=== PATIENT | female | born 1980 | race Caucasian/White ===

== ENCOUNTER 2024-01-14 08:06 | Emergency (ER) | payer OTHER, SELFPAY ==
[2024-01-14 08:10] VITALS: BP 146/84
[2024-01-14 08:32] VITALS: BMI 38.4
[2024-01-14 09:05] LABS: Hematocrit 36.5 % (37.0-47.0); Hemoglobin 12.4 g/dL (12.0-16.0); Mean Corpuscular Hgb 28.5 pg (27.0-31.0); Mean Corpuscular Volume 83.9 fL (81.0-99.0); Mean Platelet Volume 8.9 fL (7.4-10.4); Platelet Count 450 10^3/uL (130-400); Red Blood Cell Count 4.35 10^6/uL (4.20-5.40); Red Cell Dist. Width 15.2 % (11.5-14.5); White Blood Cell Count 9.4 10^3/uL (4.8-10.8)
--- NOTE | 2024-01-14 09:08 | PTCARENOTE ---
pt arrived to the ED through triage, pt is currently in ED-12 with active 1:1. Labs were collected, pt is in paper scrubs with her belongings packed up and outside of pt's room. Pt communicated to me that her was given 'one year' to live
due to him being diagnosed with leukemia, pt states they 'feels like every thing is on them, so things don't fall apart', and pt also stated 'there is no hope' due to pt's fear of not being able to financially, physically, and mentally support their
children once spouse has passed. Pt also confided in me that they have been arguing with their spouse more frequently and his mannerisms has changed.
[2024-01-14 09:09] LABS: Amphetamines Negative (Negative)
[2024-01-14 09:10] LABS: Barbiturates Negative (Negative); Benzodiazepines Positive (Negative); Buprenorphine Negative (Negative); Cocaine Negative (Negative); Marijuana Negative (Negative); Methadone Negative (Negative); Methamphetamines Negative (Negative); Opiates Negative (Negative); Phencyclidine Negative (Negative); Tricyclic Antidepressants Negative (Negative)
[2024-01-14 09:21] LABS: HCG, Serum Qualitative Screen Negative
[2024-01-14 09:22] LABS: ALT (SGPT) 40 U/L (0-35); AST (SGOT) 31 U/L (14-36); Acetaminophen < 10 ug/ml (10-30); Albumin 4.3 g/dl (3.5-5.0); Alcohol 30 mg/dl; Alkaline Phosphatase 78 U/L (38-126); Blood Urea Nitrogen 13 mg/dl (7-17); Calcium 9.3 mg/dl (8.4-10.2); Carbon Dioxide 25 mmol/L (22-30); Chloride 108 mmol/L (98-107); Estimated Creatinine Clearance 97 ml/min; Glucose 113 mg/dl (70-99); Potassium 4.3 mmol/L (3.5-5.1); Salicylate < 1.0 mg/dl (2.0-20.0); Sodium 138 mmol/L (135-145); Total Bilirubin 0.2 mg/dl (0.2-1.3); Total Protein 7.3 g/dl (6.3-8.2); eGFR > 60.00
--- NOTE | 2024-01-14 09:43 | ED.GENMED ---
History of Present Illness
General
Chief Complaint: Suicidal Ideation
Source: patient
Exam Limitations: none
Time Seen by Provider: 01/14/24 08:21
Nursing documentation reviewed up to this point in time: agreed with
Travel History
Have you had any contact with someone who has COVID-19?: No
Do you have any symptoms of coronavirus? Fever > 100 degrees, chills, cough, shortness of breath, sore throat, loss of taste or smell, muscle aches, or headache?: No
History of Present Illness
History of Present Illness:
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 Patient
denies use of any other illicit medication. Denies headache. Denies dizziness. Denies fever. Denies chest pain or shortness of breath. Denies abdominal pain. Denies nausea or vomiting. Denies previous history of similar attempt.
Past History
Past History
ED Past Medical History: Other (gout)
Social History
Living: with family
Review of Systems
Review of Systems
Allergies reviewed?: Yes
All Other Systems: ROS reviewed and negative except as documented in HPI and ROS
Constitutional: Reports no symptoms
EENT: Reports no symptoms
Respiratory: Reports no symptoms
Cardiac: Reports no symptoms
ABD/GI: Reports no symptoms
Musculoskeletal: Reports no symptoms
Skin: Reports no symptoms
Neurological: Reports no symptoms; Denies dizzy or headache
Psychiatric: Reports depression and suicidal
Phy Exam
Physical Exam
Physical Exam:
Physical Exam
General: mild distress, not acutely ill. afebrile
Head: nc/at. eomi
Neck: supple. no meningeal signs.
Heart: s1/s2 regular rate and rhythm, no murmur. equal radial pulses.
Lungs: no acute respiratory distress. clear bilaterally
Abdomen: normal bowel sounds. not tender.
Neuro: alert and oriented. no focal neurological deficits. normal speech.
Skin: no rash
Psychiatric: well kept. interactive and cooperative
Extremities: no edema. no calf tenderness.
Course
Orders/Labs/Results
Orders:
Orders
01/14/24 08:34
Test Result ONCE
01/14/24 08:41
Acetaminophen Urgent
Alcohol Urgent
Complete Blood Count/No Diff Urgent
Comprehensive Metabolic Panel Urgent
Fentanyl, Urine Urgent
HCG, Serum Qualitative Screen Urgent
Salicylate Urgent
Urine Drug Abuse Screen Urgent
Date Specimen was Collected: 01/14/24
Time Specimen was Collected: 08:34
01/14/24 08:48
1:1 Observation - Suicide/ Violent Behavior As Directed
Abnormal Lab Results
01/14/24
08:41
Hct 36.5 L %
(37.0-47.0)
RDW 15.2 H %
(11.5-14.5)
Plt Count 450 H 10^3/uL
(130-400)
Chloride 108 H mmol/L
(98-107)
Glucose 113 H mg/dl
(70-99)
ALT 40 H U/L
(0-35)
Salicylates < 1.0 L mg/dl
(2.0-20.0)
Acetaminophen < 10 L ug/ml
(10-30)
U Benzodiazepines Scrn Positive H
(Negative)
01/14/24 08:41
01/14/24 08:41
Vital Signs
Initial and Last Documented VS:
Initial Vital Signs
Temp Pulse Resp BP Pulse Ox
98.3 F 80 18 146/84 99
01/14/24 08:10 01/14/24 08:10 01/14/24 08:10 01/14/24 08:10 01/14/24 08:10
Last Documented Vital Signs
Temp Pulse Resp BP Pulse Ox
98.3 F 80 18 146/84 99
01/14/24 08:10 01/14/24 08:10 01/14/24 08:10 01/14/24 08:10 01/14/24 08:10
MDM/Problems Addressed
MDM/Problems Addressed:
Patient medically cleared. Patient will be discharged back to [facility] for further evaluation, including potential inpatient psychiatric evaluation and treatment.
*Critical Care Note
Total Time (30-74mins, 75-104mins- exclusive of procedures): Not Applicable
ED Attending Note
-
Portions of this chart may have been created with voice recognition software.� Occasional wrong word or��sound alike� substitutions may have occurred due to the inherent limitations of voice recognition software.
Discharge Plan
Departure
Patient Disposition: [facility]
Date of Disposition: 01/14/24
Time of Disposition: 09:44
Discharge Problem:
Suicidal ideation
Prescriptions:
No Action
fluoxetine 40 MG capsule
80 mg PO HS
alprazolam 0.5 MG tablet
0.5 mg PO Q6HPRN PRN (Reason: anxiety)
Eliquis 5 MG tablet
5 mg PO DAILY
Rx Instructions:
continue until instructed to stop by Dr. Rich
Referrals:
UNKNOWN,NO INTERVIEW [Family Provider] -
Interventions
Interventions:
*Risk Screen - Suicide Last Done: 01/14/24 08:47
*Neglect/Abuse Screening Last Done: 01/14/24 08:44
ED- Fall Risk Assessment Last Done: 01/14/24 08:51
*ED COVID-19 Vaccine History Last Done: 01/14/24 08:10
*Nursing Disposition Last Done: 01/14/24 09:49
ED-Psychological Assessment Last Done: 01/14/24 08:32
Discharge Date and Time
Discharge Date/Time: 01/14/24 09:49
Print Language: WOLOF
[2024-01-14 09:51] LABS: Fentanyl, Urine Negative (Negative)
== END 2024-01-14 09:49 ==
LOC: EMR 08:06
PROVIDERS: EMERGENCY PHYSICIAN Emergency Medicine
DX: R45.851 Suicidal ideations (principal); Z79.01 Long term (current) use of anticoagulants
CPT/HCPCS: 99283; 80053; 80143; 80179; 80306; 80307; 82077; 84703; 85027